=== PATIENT | male | born 1960 | race Caucasian/White ===

== ENCOUNTER → 2016-05-28 | Day surgery (SDC) | payer OTHER ==
--- NOTE | 2016-05-26 11:30 | MH ---
cc: Kendall FERGUSON M.D. DATE OF ADMISSION: 05/28/2016 ADMISSION DIAGNOSIS Torn medial meniscus left knee now for arthroscopic surgery. HISTORY OF PRESENT ILLNESS This is a pleasant 55-year-old male who is being admitted today for arthroscopic surgery to the left knee due to torn medial meniscus. OTHER MEDICAL HISTORY The patient has no medical problems. MEDICATION Takes no medication. PAST SURGICAL HISTORY Has not had any surgery. SOCIAL HISTORY Does not smoke or drink. REVIEW OF SYSTEMS Noncontributory. FAMILY HISTORY Noncontributory. ALLERGIES He has no known allergies. PHYSICAL EXAMINATION GENERAL: We find a 55-year-old male, well-developed, well-nourished, oriented x3, complains of pain in his left knee. VITAL SIGNS: Blood pressure 114/72, pulse 71 and regular, respirations 16, temperature 98.2, pulse oximetry 98% on room air. HEENT: Eyes PERRLA, EOMI. Ears, nose, mouth clear. NECK: Supple. LUNGS: Clear. HEART: Regular rate. ABDOMEN: Soft. Positive bowel sounds and nontender. EXTREMITIES: Reveals the left knee to be tender over the medial joint surface. He is neurovascularly intact to his toes. IMPRESSION AT THIS TIME Torn medial meniscus as diagnosed by MRI done April 14, 2016 at [facility], which revealed nondisplaced radial tear posterior horn region of the medial meniscus and patellofemoral chondromalacia. PLAN Plan is for arthroscopy left knee today. The patient given prescription for postop pain control in the office. He understands the use of Hibiclens scrub and Bactroban preoperatively and plans on going home after surgery. MD PRABHAKAR Cheng/TLL /11:10 AM /11:14 AM
[~2016-05-28] VITALS: Ht 180.3 cm; Wt 97.7 kg
[~2016-05-28] MED LIST: ACETAMINOPHEN/HYDROcodone 325 MG/5 MG TAB ONE; BUPIVACAINE HCL PF 0.25% 30 ML VIAL ONE; FAMOTIDINE 20 MG/2 ML VIAL ONE; KETOROLAC TROMETHAMINE 60 MG/2 ML (IM) VIAL IM ONE; MIDAZOLAM HCL 2 MG/2 ML VIAL ONE; ONDANSETRON HCL 4 MG/2 ML VIAL IV PUSH ONE; PROPOFOL 200 MG/20 ML AMP IV ONE; ceFAZolin 2 GM PREMIX 50 ML ONE; fentaNYL CITRATE 250 MCG/5 ML AMP ONE
[2016-05-28 06:41] VITALS: BP 133/80; PULSE 60; RESP 16; TEMP 97.7; O2SAT 100
[2016-05-28 07:03] LABS: BLOOD, URINE NEG (NEG); GLUCOSE,URINE NEG (NEG); KETONE, URINE NEG (NEG); NITRITE,URINE NEG (NEG); URINE COLOR YELLOW (YELLW/STRAW)
[2016-05-28 07:05] LABS: BASOPHIL % 0.6 % (0.0-2.0); EOSINOPHIL # 0.1 TH/MM3 (0-0.4); EOSINOPHIL % 2.8 % (0.0-4.0); HEMO FLAGS DIFF FINAL; LYMPH % 41.2 % (9.0-44.0); LYMPHOCYTE # 1.7 TH/MM3 (1.0-4.8); MEAN CELL VOLUME 85.6 FL (80.0-100.0); MEAN CORPUSCULAR HEMOGLOBIN 30.1 PG (27.0-34.0); MEAN CORPUSCULAR HGB CONC 35.2 % (32.0-36.0); MONO % 8.3 % (0.0-8.0); NEUT % 47.1 % (16.0-70.0); PLATELET COUNT 162 TH/MM3 (150-450); RED BLOOD COUNT 5.26 MIL/MM3 (4.50-5.90); WHITE BLOOD COUNT 4.2 TH/MM3 (4.0-11.0)
[2016-05-28 07:07] LABS: COMMENT (UR) CULT NOT INDICATED; CULTURE IF INDICATED CULT NOT INDICATED
[2016-05-28 07:19] LABS: ANION GAP 7 MEQ/L (5-15); AST (GOT) 19 U/L (15-37); BICARBONATE 29.1 MEQ/L (21.0-32.0); BLOOD UREA NITROGEN 15 MG/DL (7-18); CHLORIDE 105 MEQ/L (98-107); GLOMERULAR FILTRATION RATE 83 ML/MIN (>89); POTASSIUM 4.4 MEQ/L (3.5-5.1); SODIUM (NA) 141 MEQ/L (136-145)
[2016-05-28 07:22] LABS: ALKALINE PHOSPHATASE 66 U/L (45-117); ALT (GPT) 24 U/L (12-78); TOTAL BILIRUBIN ADULT 0.6 MG/DL (0.2-1.0)
[2016-05-28 10:50] VITALS: BP 128/84; PULSE 66; RESP 18; TEMP 97.8; O2SAT 98
--- NOTE | 2016-05-28 12:49 | EKG ---
Date Performed: 05/28/2016 Time Performed: 06:46:45 PTAGE: 55 years EKG: Sinus rhythm MODERATE INTRAVENTRICULAR CONDUCTION DELAY BORDERLINE ECG NO PREVIOUS TRACING DOCTOR: Ezio Rojo Interpretating Date/Time 05/28/2016 12:47:49
--- NOTE | 2016-05-28 21:03 | MP ---
cc: Kendall FERGUSON DATE OF SURGERY 05/28/2016 PREOPERATIVE DIAGNOSIS Internal derangement left knee. POSTOPERATIVE DIAGNOSIS Internal derangement left knee with torn posterior horn medial meniscus, plica superior lateral patellofemoral joint and chondromalacia patella, grade III left knee PROCEDURE 1. Arthroscopy, 2. Excision of torn posterior horn medial meniscus, 3. Excision of plica 4. Chondroplasty patellofemoral joint left knee. SURGEON Dr. Qi Ferguson MILL SUPERVISOR MÓNICA Dee ANESTHESIA LMA PROCEDURE IN DETAIL The patient was brought to the operating room and placed on the operating room table in the supine position. After successful induction of general anesthesia, the patient's left leg was prepped and draped in the usual manner. The knee was then placed in a knee ochoa and tightened. Arthroscopic examination was then performed by making a stab wound over the proximal superior and medial aspect of the patellofemoral joint for insertion of the inflow cannula and fluid, followed by stab wounds over the medial and lateral joint margins respectively for insertion of the arthroscope, shaver and probe. Arthroscopic examination was then performed which revealed Intact lateral compartment, intact anterior cruciate. Medial compartment found to have a tear of the posterior horn of the medial meniscus which was shaved smooth using the ArthroCare cutter shaver probe to afford a smooth surface. Patellofemoral joint found to have grade 3 chondromalacia changes, shaved smooth using the ArthroCare system. A plica noted in the superior patella femoral joint which was removed by the ArthroCare system. The rest of the knee joint found to be intact. The wound irrigated copiously lactated Ringer's solution. Excess fluid removed. 10 mL of 0.25% Marcaine plain inserted around the knee joint. Skin approximated with interrupted 3-0 nylon suture. Wet and then dry dressing applied to the wound followed by Xeroform gauze, sterile dressing and thigh-high Sai wrap. No tourniquet utilized. Estimated blood loss 5 mL. Sponge and suture count correct. The patient tolerated procedure well and left the operating room in satisfactory condition. MD PRABHAKAR Cheng/ /8:52 AM /8:57 PM
== END | disposition home or self-care (01) ==
LOC: HSDC 05:51
PROVIDERS: ATTEND Surgery
DX: S83.242A Other tear of medial meniscus, current injury, left knee, initial encounter (principal); Z01.810 Encounter for preprocedural cardiovascular examination
CPT/HCPCS: 01400; 29881; 80053; 81001; 85025; 85610; 85730; 93005; J0690; J1885; J2250; J2405; J3010

== ENCOUNTER → 2016-10-29 | Day surgery (SDC) | payer OTHER ==
--- NOTE | 2016-10-28 09:10 | MH ---
cc: Kendall FERGUSON M.D. DATE OF ADMISSION: 10/29/2016 ADMISSION DIAGNOSIS Torn medial meniscus, right knee, now for arthroscopy right knee. ADMISSION HISTORY AND PHYSICAL This pleasant 56-year-old male is being admitted today for right knee arthroscopy due to torn meniscus. PAST MEDICAL HISTORY He recently underwent an arthroscopy on his left knee. PAST HISTORY No other medical problems. MEDICATIONS He takes no medication. REVIEW OF SYSTEMS Noncontributory. FAMILY HISTORY Noncontributory. PAST SURGICAL HISTORY Other than the surgery on his left knee no other surgery. SOCIAL HISTORY He does not smoke or drink. ALLERGIES Has no known allergies. PHYSICAL EXAMINATION GENERAL: We find a 56-year-old male well-developed, well-nourished, oriented x3, complaining of pain in his right knee. VITAL SIGNS: Blood pressure 118/72, pulse 90 and regular, respirations 16, temperature 98.1, pulse oximetry 98% on room air. HEENT: Eyes PERRL, EOMI. Ears, nose, mouth clear. NECK: Supple. LUNGS: Clear HEART: Regular rate. ABDOMEN: Soft. Positive bowel sounds, nontender. EXTREMITIES: Reveals the right knee to be tender over the medial lateral joint margin, neurovascularly intact to his toes. IMPRESSION Torn medial meniscus, right knee. PLAN The plan is admission for arthroscopy right knee today. The patient given prescription for postoperative pain control in the office. He understands to use Hibiclens scrub and Bactroban preoperatively. MD PRABHAKAR Cheng/DULCE /4:05 PM /9:11 AM
[~2016-10-29] VITALS: Ht 181.6 cm; Wt 98.6 kg
[~2016-10-29] MED LIST changes: -ACETAMINOPHEN/HYDROcodone 325 MG/5 MG TAB ONE; +ACETAMINOPHEN/HYDROcodone 325 MG/5 MG TAB PO PRN; -BUPIVACAINE HCL PF 0.25% 30 ML VIAL ONE; +BUPIVACAINE/EPINEPHRINE 0.5% PF 30 ML VIAL INFIL ONE; +CHLORHEXIDINE GLUCONATE 2 % 1 PACK (2 CLOTHS) TOPICAL PRN; +CHLORHEXIDINE GLUCONATE 4% SOLN 120 ML BTL TOPICAL SCH; +DO NOT ADM ANY ANTICOAGULANT DRUGS PRN; +EXPAREL PERI-ARTICULAR INJECTION (TOTAL VOL. 60 ML) P-ARTICULR SCH; -FAMOTIDINE 20 MG/2 ML VIAL ONE; +INSULIN HUMAN REGULAR 1,000 UNITS/10 ML VIAL SQ PRN; -KETOROLAC TROMETHAMINE 60 MG/2 ML (IM) VIAL IM ONE; +LACTATED RINGER'S 1000 ML INJ 1,000 ML IV ONE; +LACTATED RINGER'S 1000 ML IV PRN; +MEPERIDINE HCL 50 MG/ML VIAL IM PRN; +METOPROLOL TARTRATE 25 MG TAB PO PRN; +ONDANSETRON HCL 4 MG/2 ML VIAL IV PUSH PRN; +POVIDONE IODINE 5% (ANTISEPSIS KIT) 4 APPLICATIONS EACH NARE PRN; +SODIUM CHLORID 0.9% 500 ML IV PRN; +ceFAZolin 2 GM PREMIX 50 ML IV SCH
[2016-10-29 09:13] VITALS: BP 120/84; PULSE 64; RESP 16; TEMP 97.8; O2SAT 98
[2016-10-29 09:37] LABS: AUTOMATED NEUTROPHIL # 1.9 TH/MM3 (1.8-7.7); BASOPHIL % 0.6 % (0.0-2.0); EOSINOPHIL # 0.1 TH/MM3 (0-0.4); EOSINOPHIL % 1.6 % (0.0-4.0); HEMATOCRIT 46.1 % (39.0-51.0); HEMO FLAGS DIFF FINAL; LYMPH % 41.8 % (9.0-44.0); LYMPHOCYTE # 1.7 TH/MM3 (1.0-4.8); MEAN CELL VOLUME 87.7 FL (80.0-100.0); MEAN CORPUSCULAR HGB CONC 35.3 % (32.0-36.0); MONO % 8.5 % (0.0-8.0); NEUT % 47.5 % (16.0-70.0); PLATELET COUNT 162 TH/MM3 (150-450); RED BLOOD COUNT 5.26 MIL/MM3 (4.50-5.90); RED CELL DISTRIBUTION WIDTH 12.5 % (11.6-17.2)
[2016-10-29 09:45] LABS: BLOOD, URINE NEG (NEG); GLUCOSE,URINE NEG (NEG); KETONE, URINE NEG (NEG); NITRITE,URINE NEG (NEG); URINE COLOR YELLOW (YELLW/STRAW)
[2016-10-29 09:47] LABS: COMMENT (UR) CULT NOT INDICATED; CULTURE IF INDICATED CULT NOT INDICATED
[2016-10-29 09:52] LABS: ANION GAP 8 MEQ/L (5-15); AST (GOT) 16 U/L (15-37); BICARBONATE 25.9 MEQ/L (21.0-32.0); BLOOD UREA NITROGEN 16 MG/DL (7-18); CHLORIDE 106 MEQ/L (98-107); GLOMERULAR FILTRATION RATE 95 ML/MIN (>89); SODIUM (NA) 140 MEQ/L (136-145)
[2016-10-29 09:53] LABS: ALT (GPT) 25 U/L (12-78); APTT (PATIENT) 26.6 SEC (24.3-30.1); PROTHROMBIN TIME - PATIENT 11.1 SEC (9.8-11.6)
[2016-10-29 09:55] LABS: ALKALINE PHOSPHATASE 70 U/L (45-117); TOTAL BILIRUBIN ADULT 1.1 MG/DL (0.2-1.0)
--- NOTE | 2016-10-29 10:28 | EKG ---
Date Performed: 10/29/2016 Time Performed: 08:55:32 PTAGE: 56 years EKG: Sinus rhythm NORMAL ECG PREVIOUS TRACING : 05/28/2016 06.46 Compared to prior tracing no significant change DOCTOR: Inocencio San Interpretating Date/Time 10/29/2016 10:27:26
--- NOTE | 2016-10-29 13:30 | HHI.PR ---
Immediate Post Op Note Procedure Date: Oct 29, 2016 Pre Op Diagnosis: Torn medial meniscus Post Op Diagnosis: posterior horn medial meniscus patella chondromalacia Surgeon: Kendall Burrell MD Antenna Engineer(s): Joie SALES Procedure: Right Knee Arthroplasty and debridement Findings: posterior horn medial meniscus patella chondromalacia Complications: none Specimen(s) removed: none Estimated blood loss: 10cc Anesthesia: General Drains: None IVF Tourniquet time (min at mmHg) none Patient to: PACU Patient Condition: Good Joie Burnett Oct 29, 2016 13:30
[2016-10-29 14:45] VITALS: BP 137/81; PULSE 67; RESP 18; TEMP 98; O2SAT 98
--- NOTE | 2016-10-31 17:32 | MP ---
cc: Kendall FERGUSON M.D. DATE OF SURGERY: 10/29/2016. PREOPERATIVE DIAGNOSIS: Torn medial meniscus right knee. POSTOPERATIVE DIAGNOSIS: Torn medial meniscus right knee with chondromalacia patella. OPERATIVE PROCEDURE PERFORMED: Arthroscopy, excision of torn medial meniscus, ArthroCare shaving of the patellofemoral joint chondromalacia. SURGEON: Kendall Ferguson MD. HIDE SPLITTER: MÓNICA Ling. ANESTHESIA: LMA DESCRIPTION OF THE PROCEDURE IN DETAIL: The patient was brought to the operating room and placed on the operating room table in the supine position. After successful induction of general anesthesia, the patient's right leg was prepped and draped in the usual manner. The knee was then placed in a knee ochoa and tightened. Arthroscopic examination was then performed by making a stab wound over the proximal superior and medial aspect of the patellofemoral joint for insertion of the inflow cannula and fluid, followed by stab wounds over the medial and lateral joint margins respectively for insertion of the arthroscope, shaver and probe. Arthroscopic examination was then performed which revealed a large tear of the posterior horn of the medial meniscus shaved smooth using the ArthroCare System to afford a smooth surface. The rest of the medial compartment was found to be intact. The anterior cruciate ligament was found to be intact. The lateral compartment was found to be intact. The patellofemoral joint was found to have grade 2 to 3 chondromalacic changes shaved smooth using the ArthroCare System. The rest of the knee joint was found to be intact. The wound was irrigated copiously with lactated Ringer's solution. Excess fluid was removed. 10 cc of 0.5% Marcaine plain was inserted into the knee joint. The skin was approximated with interrupted 2-0 nylon suture. Wet and then dry dressing was applied to the wound followed by Xeroform gauze, sterile dressing and thigh-high Sai wrap. No tourniquet was utilized. The estimated blood loss was 10 cc. Sponge and suture counts were correct. MÓNICA Ling was present during the entire procedure to include patient positioning and the procedure. The medical necessity of a nurse practitioner and wheelchair van operator first responder was indicated in this case due to the surgical complexity of the case itself. During the surgical case, the evs tech was working at the back table while my surgical consultant / SHIRT CLOSER was directly assisting me. The patient tolerated the procedure well and left the operating room in satisfactory condition. J. MD PRABHAKAR Hollis/PERCY /1:28 PM /5:28 PM
== END | disposition home or self-care (01) ==
LOC: HSDC 08:19
PROVIDERS: ATTEND Surgery
DX: S83.241A Other tear of medial meniscus, current injury, right knee, initial encounter (principal); M22.41 Chondromalacia patellae, right knee; Z01.810 Encounter for preprocedural cardiovascular examination; X58.XXXA Exposure to other specified factors, initial encounter
CPT/HCPCS: 01400; 29881; 80053; 81001; 85025; 85610; 85730; 93005; J0690; J2250; J2405; J3010; J7120